=== PATIENT | female | born 1985 | race Caucasian/White ===

== ENCOUNTER 2020-02-05 08:16 | Outpatient (CLI) | payer MEDICAID, SELFPAY ==
--- NOTE | 2020-02-05 08:28 | US_ITS ---
WS: [id number] Pelvic ultrasound, 02/05/2020 Clinical Data: LOWER ABDOMINAL PAIN/NAUSEA/HX OF HYSTERECTOMY Comparison: Pelvic ultrasound, 10/08/2010. Findings: The uterus is absent. The left ovary measures 3.7 cm x 2.3 cm x 1.8 cm with small follicular cysts. The right ovary measures 3.1 cm x 1.8 cm x 1.3 cm with small follicular cysts. There is normal blood flow to both ovaries. There is no fluid in the cul-de-sac. US/US pelvic with transvaginal Impression: 1. Hysterectomy. 2. Bilateral follicular cysts.
== END 2020-02-05 08:17 | disposition home or self-care (01) ==
LOC: RAD 08:21
PROVIDERS: PCP Registered Nurse; Visit Provider Registered Nurse
DX: R10.30 Lower abdominal pain, unspecified (principal); R11.0 Nausea; Z90.710 Acquired absence of both cervix and uterus; N83.02 Follicular cyst of left ovary; N83.01 Follicular cyst of right ovary
CPT/HCPCS: 76830; 76856

== ENCOUNTER 2020-03-30 09:29 | Outpatient (CLI) | payer MEDICAID, SELFPAY ==
--- NOTE | 2020-03-30 09:30 | CT_ITS ---
WS: [id number] Exam: CT abdomen pelvis w con* [id number] Date/Time of Exam: 03/30/2020 9:39 AM Reason For Exam: ABDOMINAL PAIN UNSPECIFIED DLP: 836.[address] scans at [facility] use at least one of these dose optimization techniques: automat ed exposure control; mA and/or kV adjustment per patient size (includes targeted exams where dose is matched to clinical indication); or iterative reconstruction. Comparison 03/30/2010. Lower lung zones are clear. A 2.6 cm cyst is seen in the left lobe of the liver. The liver is otherwi se unremarkable. The stomach, spleen and pancreas appear normal. No calcified stones in the gallbladd er. The abdominal aorta is normal in caliber. The portal vein and IVC are patent. Unremarkable adrena l glands and kidneys. Small bowel loops are not dilated. No significant large bowel abnormality seen. The appendix is normal as visualized. No free air. No lymphadenopathy. No mass in the pelvis. Subcen timeter involuting right adnexal cyst probably an ovarian cyst. Small follicle cysts in the left ovar y. The urinary bladder is smooth in contour. No destructive bone lesions. Abdominal wall is intact. CT/CT abdomen pelvis w con* [id number] IMPRESSION: 1. No mass, lymphadenopathy or acute finding in the abdomen or pelvis. 2. Additional minor nonacute findings as indicated above.
[2020-03-30] MEDS: iohexol 300 mg/mL 50 mL Btl PO (10:36)
[2020-03-30] MEDS: iohexol 300 mg/mL 100 mL Btl IV (11:02)
== END 2020-03-30 09:30 | disposition home or self-care (01) ==
LOC: RADWPI 09:32
PROVIDERS: PCP Registered Nurse; Visit Provider Registered Nurse
DX: R10.9 Unspecified abdominal pain (principal)
CPT/HCPCS: 74177; Q9967

== ENCOUNTER → 2020-09-21 08:43 | Outpatient (BNVA) | payer BC, MEDICAID, SELFPAY | PROVIDERS: PCP Registered Nurse; Visit Provider Obstetrics & Gynecology | DX: R23.2 Flushing (principal); R10.2 Pelvic and perineal pain; N94.10 Unspecified dyspareunia | CPT/HCPCS: 83001 ==

== ENCOUNTER 2020-09-23 10:58 | Emergency (ER) | payer BC, MEDICAID, SELFPAY ==
[2020-09-23 11:08] VITALS: BP 105/82; PULSE 74; RESP 16; TEMP 36.5; O2SAT 98; BMI 19.2
--- NOTE | 2020-09-23 11:15 | CT_ITS ---
WS: [id number] CT HEAD NONCONTRAST HISTORY: visual changes, headache TECHNIQUE: Contiguous axial imaging performed through the brain in 2.5 mm imaging. Bone and soft tiss ue windows. Sagittal and coronal reformats reviewed. All CT scans at [facility] use at ast one of these dose optimization techniques: automated exposure control; mA and/or kV adjustment pe r patient size (includes targeted exams where dose is matched to clinical indication); or iterative r econstruction. DLP: 778.81 mGy.cm COMPARISON: 06/14/2014 No acute intracranial hemorrhage, midline shift or mass effect. No atrophy or prior infarcts or herniation. Ventricles: Normal size with no hydrocephalus. Paranasal sinuses: As visualized are clear. Mastoid air cells: Well pneumatized. Calvarium and scalp: Skull is intact with no soft tissue edema or swelling. CT/CT head wo con* [id number] IMPRESSION: Negative head CT.
--- NOTE | 2020-09-23 11:19 | ED_ITS ---
HPI - General Adult General: Chief complaint: General Medical Stated complaint: GENERAL UNWELLNESS Time Seen by Provider: 09/23/20 11:06 History of Present Illness: HPI narrative: 34-year-old female presents to the emergency room with several vague complaints of visual difficulties some musculoskeletal complaints pelvic pain. She is seeing gynecology for the pelvic pain she did have CT and ultrasound of the pelvis is very difficult to get her to focus on a specific complaint I was able to get her to focus on the vision she will see a floater on her left temporal field of vision. Bothers her when she drives to get the sensors car or an object coming out of her from that direction but then when she looks will be nothing there she has not seen ophthalmology but did see the rn testing they gave her eyeglasses. For the pelvic pain she seen gynecology they did not have a significant finding she has previously had a hysterectomy. Onset (ago): month(s) Location: back and abdomen Severity: moderate Relieving factors: none Exacerbating factors: none Associated symptoms: Reports decreased appetite, headache(s), malaise and nausea; Deny chest pain, confusion, cough, diaphoresis, dyspnea, fevers/chills, rash, palpitations, seizures, short of breath, syncope, vomiting or weakness Treatments prior to arrival: none Review of Systems Const: Reports: malaise; Denies: diaphoresis ENMT: Denies: throat pain, ear or mastoid pain, nasal discharge or nasal congestion Card: Denies: chest pain, palpitations or syncope Resp: Denies: dyspnea GI: Reports: nausea; Denies: vomiting : Denies: flank pain, difficulty voiding, dysuria, urinary frequency or urinary urgency Skin/Breast: Denies: rash Neuro: Reports: headache(s); Denies: confusion PFSH ED PFSH: Surgical History H/O laparoscopy H/O: hysterectomy also states that she had a surgery on a fallopian tube Family History Mother Hypertension Thyroid condition Denies family history of Colon cancer Ovarian cancer Diabetes Clotting disorder Heart disease Hyperlipidemia Breast cancer Anesthesia complication Bleeding disorder Uterine cancer Stroke Social History Smoking and tobacco status: current every day smoker cigarettes Packs smoked per day: 1 Years cigarettes smoked: 20 Alcohol intake: current Alcohol intake frequency: holidays/special occasions only Alcohol type: beer Other details last substance use: history of marijuana and methamphetamine use years ago Physical Exam Const: COMMON NORMALS: no acute distress GENERAL APPEARANCE: cooperative an d comfortable ORIENTATION/CONSCIOUSNESS: Yes awake, Yes oriented to person, Yes oriented to place and Yes oriented to time HENMT: COMMON NORMALS: normocephalic, atraumatic and hearing grossly normal bilaterally HEAD & SCALP: normocephalic and atraumatic Neck/C-Spine: COMMON NORMALS: no JVD Resp: COMMON NORMALS: normal respiratory effort, No retractions, No use of accessory muscles and clear to auscultation bilaterally AUSCULTATION: clear to auscultation bilaterally Cardio: COMMON NORMALS: no JVD, regular rate, regular rhythm and No murmurs present (Cardio) RATE: regular rate RHYTHM: regular rhythm GI: COMMON NORMALS: Soft to palpation and No hepatosplenomegaly present AUSCULTATION: Yes normoactive bowel sounds PALPATION: Yes Soft to palpation, No Tenderness to palpation present (GI), No Guarding due to palpation present (GI) and Yes No hepatosplenomegaly present Extremity: COMMON NORMALS: normal to inspection, capillary refill normal, no clubbing, cyanosis or edema, no calf tenderness and no pedal edema Neuro: SENSORIUM/ORIENTATION: Yes oriented to person, Yes oriented to place and Yes oriented to time Skin: COMMON NORMALS: no rashes or lesions noted GENERAL SKIN EXAM: no rashes or lesions noted Course Vital Signs: Vital signs: Vital Signs Temperature 97.7 F 09/23/20 11:08 Pulse Rate 75 09/23/20 13:38 Respiratory Rate 16 09/23/20 13:38 Blood Pressure 110/67 09/23/20 13:38 Pulse Oximetry 97 09/23/20 13:38 MDM - General Adult MDM Narrative: Medical decision making narrative: Reviewed the lab findings and imaging. At this point I will is much more we can do in the emergency room. Organ to try to get her referred to internal medicine ophthalmology and neurology to see if she can get further evaluation for the complaints. Lab Data: Labs: Lab Results 09/23/20 09/23/20 Range/Units 11:25 11:25 WBC 6.0 (4.0-10.0) 10^3/ uL RBC 4.49 (4.1-5.3) 10^6/u L Hgb 13.5 (11.5-15.3) g/dL Hct 40.1 (37.0-47.0) % MCV 89.3 (81-99) fL MCH 30.1 (28.0-34.0) pg MCHC 33.7 (30.0-36.0) g/dL RDW 12.5 (12.1-15.1) % Plt Count 189 (130-400) 10^3/c mm MPV 10.2 (7.4-10.4) fL Neut % (Auto) 51.1 % Lymph % (Auto) 36.5 % [place] % (Auto) 9.2 % Eos % (Auto) 2.2 % Baso % (Auto) 0.8 % Neut # (Auto) 3.04 (1.8-7.7) 10^3/u L Lymph # (Auto) 2.2 (0.8-4.8) 10^3/u L [place] # (Auto) 0.6 (0.2-0.9) 10^3/u L Eos # (Auto) 0.1 (0.0-0.8) 10^3/u L Baso # (Auto) 0.1 (0.0-0.1) 10^3/u L Nucleated RBC % (a uto) 0 % Nucleated RBCs # 0.0 /100WBC Sodium 137 (136-145) mmol/L Potassium 4.0 (3.5-5.1) mmol/L Chloride 103 (98-107) mmol/L Carbon Dioxide 28 (22-29) mmol/L Anion Gap 10.0 (5-19) BUN 9 (6-20) mg/dL Creatinine 0.6 (0.5-0.9) mg/dL GFR Calculation 113.8 (90-130) mL/min Glucose 95 (65-115) mg/dL Calculated Osmolal ity 282 L (285-295) mOsm/k g Calcium 8.7 (8.5-10.5) mg/dL Total Bilirubin 0.3 (0.15-1.2) mg/dL AST 15 (0-32) U/L ALT 15 (0-33) U/L Alkaline Phosphata se 49 (35-105) IU/L Total Protein 7.2 (6.6-8.7) g/dL Albumin 4.3 (3.5-5.2) g/dL Globulin 2.9 (1.3-4.6) g/dL Discharge Plan Discharge Patient Disposition: Home Clinical Impression: Weakness, Visual disturbance Condition: Stable Prescriptions: No Action No Known Home Medications RF: 0 Discharge Orders: Discharge ED (Routine); Ordered 09/23/20 Ordered By: Mando Murphy Referrals: Flora Murphy [Primary Care Provider] - Discharge Diet: Usual diet Discharge Activity: Increase activity as tolerated Patient Instructions: Opioid Safety Activity Restrictions/Additional Instructions: Case management will call with appointment to Internal Medcine, Opthalmology, and Neurology. Coding Level of Care Code ED Cork Molder for Reymundo Stoner
[2020-09-23 11:30] LABS: Basophils # 0.1 10^3/uL (0.0-0.1); Basophils % 0.8 %; Eosinophils # 0.1 10^3/uL (0.0-0.8); Eosinophils % 2.2 %; Hematocrit 40.1 % (37.0-47.0); Hemoglobin 13.5 g/dL (11.5-15.3); Lymphocytes # 2.2 10^3/uL (0.8-4.8); Lymphocytes % 36.5 %; Mean Corpuscular HGB Conc 33.7 g/dL (30.0-36.0); Mean Corpuscular Hemoglobin 30.1 pg (28.0-34.0); Mean Corpuscular Volume 89.3 fL (81-99); Mean Platelet Volume 10.2 fL (7.4-10.4); Monocytes # 0.6 10^3/uL (0.2-0.9); Monocytes % 9.2 %; Neutrophils # 3.04 10^3/uL (1.8-7.7); Neutrophils % 51.1 %; Nucleated Red Blood Cells % 0 %; Platelet Count 189 10^3/cmm (130-400); Red Blood Count 4.49 10^6/uL (4.1-5.3); Red Cell Distribution Width 12.5 % (12.1-15.1)
[2020-09-23 11:58] LABS: Alanine Aminotransferase 15 U/L (0-33); Albumin Level 4.3 g/dL (3.5-5.2); Alkaline Phosphatase 49 IU/L (35-105); Aspartate Amino Transferase 15 U/L (0-32); Blood Urea Nitrogen 9 mg/dL (6-20); Calcium 8.7 mg/dL (8.5-10.5); Carbon Dioxide 28 mmol/L (22-29); Chloride 103 mmol/L (98-107); Globulin 2.9 g/dL (1.3-4.6); Glomerular Filtration Rate 113.8 mL/min (90-130); Glucose 95 mg/dL (65-115); Osmolality Calculated 282 mOsm/kg (285-295); Sodium 137 mmol/L (136-145); Total Bilirubin 0.3 mg/dL (0.15-1.2); Total Protein 7.2 g/dL (6.6-8.7)
[2020-09-23 13:38] VITALS: BP 110/67; PULSE 75; RESP 16; O2SAT 97
--- NOTE | 2020-09-24 11:42 | DCPLANNER ---
manager reliability had message to schedule a follow up appointment for patient with internal medicine. manager reliability called the office of Dr. Martínez, spoke with Ignacia, gave clinic patients information. A follow up appointment was scheduled for Wednesday, September 27 at 10:00 with C D STRIPPER, Megan Cantu. Clinic will call patient with appointment information. manager reliability also had message to schedule a follow up appointment for patient with neurology. manager reliability emailed patients information to Georgette at Dr. Keane office. Patients information will be printed and reviewed. Clinic will call patient with appointment information. manager reliability also had message to schedule a follow up appointment for patient with opthalmology. manager reliability faxed patients information to the office of Dr. Ayala. manager reliability will call for appointment information.
--- NOTE | 2020-09-28 14:13 | DCPLANNER ---
Patient had a follow up appointment scheduled for 09.27.20 with Rubi Cantu at Internal Medicine - patient did attend appointment.
--- NOTE | 2020-09-28 14:17 | DCPLANNER ---
Dr. Ayala office called pillowcase sewer stating that the clinic no longer accepts health blue insurance, which is what patient has at this time. performing arts road manager called patient to explain this to patient, unable to speak with patient at this time. performing arts road manager left a voicemail for patient to return pillowcase sewer phone call.
--- NOTE | 2020-10-06 15:18 | DCPLANNER ---
Patient has a follow up appointment scheduled for Tuesday, October 13, 2020 at 2:[address] Condon. Clinic will call patient with appointment information.
--- NOTE | 2020-12-07 07:27 | DCPLANNER ---
Patient had a follow up appointment scheduled for 10.13.[address] Condon - patient did attend appointment.
== END 2020-09-23 13:39 | disposition home or self-care (01) ==
PROVIDERS: Emergency Provider Family Medicine; PCP Registered Nurse
DX: R53.1 Weakness (principal); H53.9 Unspecified visual disturbance; F17.210 Nicotine dependence, cigarettes, uncomplicated
CPT/HCPCS: 70450; 80053; 85025; 99283

== ENCOUNTER → 2020-09-27 11:00 | Outpatient (BNVA) | payer BC, MEDICAID, SELFPAY | PROVIDERS: PCP Registered Nurse; Visit Provider Nurse Practitioner Family | DX: F41.1 Generalized anxiety disorder (principal); R53.83 Other fatigue; E11.9 Type 2 diabetes mellitus without complications; R53.1 Weakness; H61.20 Impacted cerumen, unspecified ear; R42 Dizziness and giddiness | CPT/HCPCS: 82306; 82607; 83036; 83550; 84439; 84443; 84481 ==

== ENCOUNTER → 2020-10-13 13:46 | Outpatient (BNVA) | payer BC, MEDICAID, SELFPAY | PROVIDERS: PCP Registered Nurse; Referring Provider Family Medicine; Visit Provider Nurse Practitioner | DX: R53.1 Weakness (principal); R42 Dizziness and giddiness; F17.210 Nicotine dependence, cigarettes, uncomplicated | CPT/HCPCS: 99204 ==

== ENCOUNTER → 2020-10-18 10:48 | Outpatient (BNVA) | payer BC, MEDICAID, SELFPAY | PROVIDERS: PCP Registered Nurse; Visit Provider Obstetrics & Gynecology | DX: R10.2 Pelvic and perineal pain (principal); N83.202 Unspecified ovarian cyst, left side | CPT/HCPCS: 76830 ==

== ENCOUNTER → 2020-11-01 08:14 | Outpatient (BNVA) | payer BC, MEDICAID, SELFPAY | PROVIDERS: PCP Registered Nurse; Visit Provider Obstetrics & Gynecology | DX: R10.2 Pelvic and perineal pain (principal); G89.29 Other chronic pain; R23.2 Flushing; N94.10 Unspecified dyspareunia | CPT/HCPCS: 87635 ==

== ENCOUNTER 2020-11-03 07:20 | Day surgery (SDC) | payer BC, MEDICAID, SELFPAY ==
[2020-11-01 12:02] VITALS: BMI 19.9
[2020-11-01 12:25] LABS: Add Urine Microscopic? NO; Charge for UA Resulting for Rev
[2020-11-01 12:28] LABS: Basophils # 0.1 10^3/uL (0.0-0.1); Basophils % 0.9 %; Eosinophils # 0.1 10^3/uL (0.0-0.8); Eosinophils % 1.9 %; Hematocrit 42.4 % (37.0-47.0); Hemoglobin 13.9 g/dL (11.5-15.3); Lymphocytes # 2.3 10^3/uL (0.8-4.8); Lymphocytes % 41.3 %; Mean Corpuscular HGB Conc 32.8 g/dL (30.0-36.0); Mean Corpuscular Hemoglobin 29.8 pg (28.0-34.0); Mean Platelet Volume 10.6 fL (7.4-10.4); Monocytes # 0.4 10^3/uL (0.2-0.9); Monocytes % 6.4 %; Neutrophils # 2.79 10^3/uL (1.8-7.7); Neutrophils % 49.3 %; Nucleated Red Blood Cells % 0 %; Platelet Count 218 10^3/cmm (130-400); Red Blood Count 4.66 10^6/uL (4.1-5.3); White Blood Count 5.7 10^3/uL (4.0-10.0)
--- NOTE | 2020-11-01 12:33 | ANES.PREANE2 ---
Pre-Anesthetic Assessment Pre-Anesthetic Assessment: Height/Weight: Height 1.63 m Weight 52.617 kg Preop Diagnosis: Chronic pelvic pain Proposed Procedure: Operation Date: 11/03/20 13:10 Proposed Procedures p Laparoscopy diagnostic 44621 R10.2(Not Applicable) - Reno Santos MD Familial anesthetic complications: None Social: Social History: Tobacco and No alcohol Exam: Pre-Anes Outpt Exam: alert, oriented x 3, clear to auscultation bilaterally and regular rate & rhythm Airway: MP: 2 Dentition: False Anesthetic Plan: ASA status: 1 Anesthesia: MAC Risk of > 500 ml blood loss (7ml/kg in children): No PFSH Anesthesia PFSH: Medical History Globus pharyngeus Vertigo Weakness Surgical History H/O laparoscopy H/O: hysterectomy also states that she had a surgery on a fallopian tube Family History Mother Hypertension Thyroid condition Denies family history of Colon cancer Ovarian cancer Diabetes Clotting disorder Heart disease Hyperlipidemia Breast cancer Anesthesia complication Bleeding disorder Uterine cancer Stroke Social History (Updated 11/01/20 @ 08:22 by Erna Auguste RN) Smoking and tobacco status: current every day smoker cigarettes Packs smoked per day: 1 Years cigarettes smoked: 20 Alcohol intake: current Alcohol intake frequency: holidays/special occasions only Alcohol type: beer Other details last substance use: history of marijuana and methamphetamine use years ago Data Anesthesia CBC & Chem 7: 11/01/20 12:15 11/01/20 12:15 Other Labs: Laboratory Results - last 48 hr 11/01/20 12:15 WBC 5.7 RBC 4.66 Hgb 13.9 Hct 42.4 MCV 91.0 MCH 29.8 MCHC 32.8 RDW 13.0 Plt Count 218 MPV 10.6 H Neut % (Auto) 49.3 Lymph % (Auto) 41.3 [place] % (Auto) 6.4 Eos % (Auto) 1.9 Baso % (Auto) 0.9 Neut # (Auto) 2.79 Lymph # (Auto) 2.3 [place] # (Auto) 0.4 Eos # (Auto) 0.1 Baso # (Auto) 0.1 Nucleated RBC % (auto) 0 Nucleated RBCs # 0.0 Cardiac Studies: No Data to Display
[2020-11-01 12:42] LABS: Bilirubin Urine Neg (Negative); Blood Urine Neg (Negative); Glucose Urine UA Norm (Normal); Ketones Urine 1+ (Negative); Leukocyte Esterase Urine Negative (Negative); Nitrate Urine Negative (Negative); Protein Urine Neg (Negative); Specific Gravity, Urine 1.015 (1.005-1.030); Urine Appearance Clear (CLEAR); Urine Color Straw (Yellow); Urobilinogen Urine Norm (Negative); pH Urine 6 (5-7)
[2020-11-01 13:03] LABS: Blood Urea Nitrogen 8 mg/dL (6-20); Calcium 8.7 mg/dL (8.5-10.5); Carbon Dioxide 27 mmol/L (22-29); Chloride 101 mmol/L (98-107); Glomerular Filtration Rate 113.8 mL/min (90-130); Glucose 112 mg/dL (65-115); Osmolality Calculated 287 mOsm/kg (285-295); Sodium 139 mmol/L (136-145)
[2020-11-03] VITALS (7 sets, daily range): BP systolic 95–105; BP diastolic 54–64; PULSE 68–78; RESP 18–21; TEMP 36.3–36.6; O2SAT 99–100
--- NOTE | 2020-11-03 07:46 | ANES.PAUD2 ---
Pre-Anesthetic Update Pre-Anesthetic Assessment: Date of Surgery/Procedure: 11/03/20 Preop Diagnosis: Chronic pelvic pain Proposed Procedure: Operation Date: 11/03/20 09:00 Proposed Procedures p Laparoscopy diagnostic 70510 R10.2(Not Applicable) - Reno Santos MD Any changes to Pre-Anesthetic Assessment?: No Labs Last 48hrs: Laboratory Results - last 48 hr 11/01/20 11/01/20 11/01/20 12:08 12:15 12:15 WBC 5.7 RBC 4.66 Hgb 13.9 Hct 42.4 MCV 91.0 MCH 29.8 MCHC 32.8 RDW 13.0 Plt Count 218 MPV 10.6 H Neut % (Auto) 49.3 Lymph % (Auto) 41.3 [place] % (Auto) 6.4 Eos % (Auto) 1.9 Baso % (Auto) 0.9 Neut # (Auto) 2.79 Lymph # (Auto) 2.3 [place] # (Auto) 0.4 Eos # (Auto) 0.1 Baso # (Auto) 0.1 Nucleated RBC % (a uto) 0 Nucleated RBCs # 0.0 Sodium 139 Potassium 4.0 Chloride 101 Carbon Dioxide 27 Anion Gap 15.0 BUN 8 Creatinine 0.6 GFR Calculation 113.8 Glucose 112 Calculated Osmolal ity 287 Calcium 8.7 Urine Color Straw Urine Appearance Clear Urine pH 6 Ur Specific Gravit y 1.015 Urine Protein Neg Urine Glucose (UA) Norm Urine Ketones 1+ H Urine Blood Neg Urine Nitrate Negative Urine Bilirubin Neg Urine Urobilinogen Norm Ur Leukocyte Isabelle ase Negative Blood Type Rho(D) Type Antibody Screen 11/01/20 12:15 WBC RBC Hgb Hct MCV MCH MCHC RDW Plt Count MPV Neut % (Auto) Lymph % (Auto) [place] % (Auto) Eos % (Auto) Baso % (Auto) Neut # (Auto) Lymph # (Auto) [place] # (Auto) Eos # (Auto) Baso # (Auto) Nucleated RBC % (a uto) Nucleated RBCs # Sodium Potassium Chloride Carbon Dioxide Anion Gap BUN Creatinine GFR Calculation Glucose Calculated Osmolal ity Calcium Urine Color Urine Appearance Urine pH Ur Specific Gravit y Urine Protein Urine Glucose (UA) Urine Ketones Urine Blood Urine Nitrate Urine Bilirubin Urine Urobilinogen Ur Leukocyte Isabelle ase Blood Type A Positive Rho(D) Type Positive / 4+ Antibody Screen Negative Vitals: Temperature 97.5 F L 11/03/20 07:34 Temperature Source Temporal Artery S can 11/03/20 07:34 Pulse Rate 69 11/03/20 07:34 Respiratory Rate 18 11/03/20 07:34 Blood Pressure 103/62 11/03/20 07:34 Blood Pressure Maci n 75 11/03/20 07:34 Pulse Oximetry 100 11/03/20 07:34 Oxygen Delivery Me thod 11/03/20 07:34 Exam: Pre-Anes Outpt Exam: alert, oriented x 3, clear to auscultation bilaterally and regular rate & rhythm Cardiac Studies: No Data to Display
--- NOTE | 2020-11-03 07:57 | W.PM.OPSUD ---
Surgery/Procedure H&P Update DATE OF PROCEDURE: November 03, 2020 DATE H&P PERFORMED: 11/01/20 H&P UPDATE INFORMATION: I have reviewed H&P completed within last 30 days, I have examined patient prior to procedure and No changes to prior documentation PREOP DIAGNOSIS: Chronic pelvic pain PLANNED PROCEDURE: Operation Date: 11/03/20 09:00 Proposed Procedures p Laparoscopy diagnostic 21976 R10.2(Not Applicable) - Reno Santos MD
[2020-11-03] MEDS: scopolamine 1.5 Patch 1 PATCH TRANSDERMA (08:03)
[2020-11-03] MEDS: sodium chloride 0.9% 500 ML IV (08:04)
[2020-11-03] MEDS: acetaminophen 1,000 MG/100 ML PIGGYBACK 400 MG IV (08:04)
[2020-11-03] MEDS: sodium chloride 0.9% 1,000 ML 30 ML IV (08:06)
[2020-11-03] MEDS: vancomycin 1,000 MG in sodium chloride 0.9% 250 ML 250 MG IV (09:30)
--- NOTE | 2020-11-03 10:30 | P.OP_ITS ---
Operative Report Date of procedure: November 03, 2020 Pre-op Diagnosis: Chronic pelvic pain Post-op diagnosis: same Post-op Diagnosis: Adhesions Procedure Done: Diagnostic laparoscopy. Lysis of adhesions Specimens removed/disposition: None Pathology: none sent Surgeon: Reno Santos MD Anesthesia: General Estimated blood loss (mL): 1 IV fluids (mL): 500 Urine output (mL): 100 Complications: none Condition: stable Disposition: PACU Brief History: 34 y/o femal post LAVH with chronic pelvic pain. Procedure: DESCRIPTION OF PROCEDURE: After informed consent, the patient was taken to the operating room where general anesthesia was administered. The patient was examined under anesthesia and found to have a normal uterus with normal adnexa. She was placed in the dorsal lithotomy position and prepped and draped in sterile fashion. Pre- Procedure Time-Out verifying the correct patient identity, correct procedure verified with consent, correct site and side, correct patient position, availability of correct implants and any special equipment or requirements was performed and acknowledge by the OR team. A weighted speculum was placed in the vagina, and the anterior lip of cervix was grasped with the single toothed tenaculum. A uterine manipulator was advanced into the endocervical. Tenaculum was removed after uterine manipulator was secured. The speculum was removed from the vagina. An intraumbilical incision was made with a scalpel. While tenting up on the abdomen, a Verres needle with sleeve was admitted into the intra-abdominal cavity. A saline drop test was performed and noted to be within normal limits. Pneumoperitoneum was attained with 4 liters of carbon dioxide. The Verres needle was removed. A 5 mm trocar and sleeve were admitted into the abdomen and laparo scopic confirmation of location was achieved, A second incision was made 3 cm above the symphysis pubis, and a 5 mm trocar and sleeve were admitted into the abdomen under direct, laparoscopic visualization without complication. A survey revealed normal abdominal anatomy but adhesion noted on the right lateral anterior abdominal wall to the ascending large intestine. The pelvic survey shows normal uterus, left and right adnexa. A 5 mm blunt probe was advanced through the second trocar sleeve, and light manipulation of ovaries, no uterus, to assess the posterior aspects was performed. The filmy adhesions were lysed using the laparoscopic Voyant device without complications. The appendix was then assess and it apperared normal. Carbon dioxide was allowed to escape from the abdomen. The instruments were removed, and skin cover with a bandage. The instruments were removed from the vagina, and excellent hemostasis was noted. The patient tolerated the procedure well, and sponge, lap and needle count were correct times two. The patient taken to the recovery room in good condition.
--- NOTE | 2020-11-03 15:44 | ANE.PACU2 ---
Inpatient post-anesthesia follow up: Airway intact: Yes Vital signs: Temperature 97.8 F Pulse Rate 68 Respiratory Rate 18 Blood Pressure 101/60 Pulse Oximetry 99 Oxygen Delivery Me thod Room Air Oxygen Flow Rate 6 Fraction of Inspir ed Oxygen Hydration adequate: Yes Nausea and vomiting: No Pain level: 3 Mental status: Baseline
== END 2020-11-03 11:40 | disposition home or self-care (01) ==
PROVIDERS: PCP Registered Nurse; Visit Provider Obstetrics & Gynecology
PROC: (CPT 49320; principal; 2020-11-03 09:00)
DX: R10.2 Pelvic and perineal pain (principal); G89.29 Other chronic pain; F17.210 Nicotine dependence, cigarettes, uncomplicated
CPT/HCPCS: 49320; 36415; 80048; 81003; 85025; 86850; 86900; 96365; J1100; J2250; J2405; J2704; J2710; J3010; J3370; J3490; J7030; J7040; J7050

== ENCOUNTER 2020-11-04 15:47 | Emergency (ER) | payer BC, MEDICAID, SELFPAY ==
[2020-11-04 15:58] VITALS: BP 107/60; PULSE 68; RESP 14; TEMP 36.9; O2SAT 98; BMI 20.9
[2020-11-04 17:51] VITALS: BP 106/73; PULSE 70; RESP 16; O2SAT 97
--- NOTE | 2020-11-04 18:03 | W.ED.EYEPROB ---
HPI - Eye Problem General: Chief complaint: Eye Problems Stated complaint: blurry vision Time Seen by Provider: 11/04/20 17:44 History of Present Illness: HPI Narrative: Patient is a 34-year-old female comes to the ED with blurred vision and dizziness. Patient says that on Sunday she had a surgery with Dr. Santos and this morning when she got up she was having blurred vision and dizziness. Patient called Dr. Santos today and they instructed her to come to the ED to be evaluated. She denies having really any abdominal pain and laparoscopic surgical incisions are closed and not causing her any problems. She says the blurred vision is in both of her eyes and she woke up with it this morning. She also woke up with the dizziness this morning and says that it gets worse if she turns her head to one side. She states that since procedure yesterday she has not eaten or drank much. Associated symptoms: Denies fever(s), headache(s), nausea, neck pain or vomiting Review of Systems Const: Denies: fever(s), chills or fatigue Eyes: Reports: blurry vision (Bilateral eyes); Denies: change in vision or eye discomfort ENMT: Denies: throat pain, odynophagia, nasal discharge or nasal congestion Card: Denies: chest pain, palpitations, edema, swelling of feet/ankles, dyspnea on exertion or orthopnea Resp: Denies: dyspnea, productive cough or non-productive cough GI: Denies: abdominal pain, nausea, vomiting, diarrhea, constipation or hematochezia : Denies: flank pain, dysuria or hematuria Musc: Denies: neck pain, back pain or extremity swelling Skin/Breast: Denies: rash or new lesions Neuro: Reports: dizziness; Denies: headache(s), numbness in extremities or weakness in extremities PFSH ED PFSH: Medical History Globus pharyngeus Vertigo Weakness Surgical History H/O laparoscopy H/O: hysterectomy also states that she had a surgery on a fallopian tube Family History Mother Hypertension Thyroid condition Denies family history of Colon cancer Ovarian cancer Diabetes Clotting disorder Heart disease Hyperlipidemia Breast cancer Anesthesia complication Bleeding disorder Uterine cancer Stroke Social History Smoking and tobacco status: current every day smoker cigarettes Packs smoked per day: 1 Years cigarettes smoked: 20 Alcohol intake: current Alcohol intake frequency: holidays/special occasions only Alcohol type: beer Other details last substance use: history of marijuana and methamphetamine use years ago Physical Exam Const: COMMON NORMALS: no acute distress, patient oriented x3, healthy appearing and alert GENERAL APPEARANCE: cooperative and comfortable HENMT: COMMON NORMALS: normocephalic HEAD & SCALP: normocephalic MOUTH: Normal oral and palatal mucosa present THROAT: posterior oropharynx normal and uvula midline Eye: COMMON NORMALS: Equal, round and reactive pupils present, EOMs intact bilaterally and conjunctivae normal CONJUNCTIVA: Yes conjunctivae normal PUPIL: Yes Equal, round and reactive pupils present EOM: Yes Nystagmus present Nystagmus Noted: positive horizontal and positive with left lateral gaze Neck/C-Spine: COMMON NORMALS: supple GENERAL: Yes normal visual inspection Resp: COMMON NORMALS: normal respiratory effort, No retractions, No use of accessory muscles and clear to auscultation bilaterally AUSCULTATION: clear to auscultation bilaterally Cardio: COMMON NORMALS: regular rate, regular rhythm, S1 normal heart sound present, S2 normal heart sound present, No gallops present (Cardio), No clicks present (Cardio), No murmurs present (Cardio) and Peripheral pulses 2+ throughout RATE: regular rate RHYTHM: regular rhythm HEART SOUNDS: S1 normal heart sound present and S2 normal heart sound present PERIPHERAL PULSES: Peripheral pulses 2+ throughout GI: COMMON NORMALS: Normal to inspection, nondistended, normoactive bowel sounds present, Soft to palpation, non-tender and no masses INSPECTION: Yes incision (2 small surgical incisions on abd-closed, no drainage, erythema or warmth) Inspection of incision: healing well PALPATION: Yes Soft to palpation : COMMON NORMALS: Yes no CVA tenderness BLADDER/KIDNEY EXAM: Yes no CVA tenderness Back/Pelvis: COMMON NORMALS: no CVA tenderness Extremity: COMMON NORMALS: normal to inspection Neuro: COMMON NORMALS: patient oriented x3 and moves all extremities SENSORIUM/ORIENTATION: Yes alert Skin: GENERAL SKIN EXAM: dry skin Course Vital Signs: Vital signs: Vital Signs Temperature 98.4 F 11/04/20 15:58 Pulse Rate 60 11/04/20 19:59 Respiratory Rate 18 11/04/20 19:59 Blood Pressure 120/68 11/04/20 19:59 Pulse Oximetry 100 11/04/20 19:59 MDM - Eye Problem MDM Narrative: Medical decision making narrative: Patient is a 34-year-old female comes to the ED with dizziness and blurry vision. Patient had a laparoscopic procedure by Dr. Santos yesterday. She contacted Dr. Santos and he told her to come here to the ED to be evaluated. Patient appears nontoxic and in no acute distress or pain. CBC and CMP were unremarkable. CT of head showed no acute findings. EKG showed sinus bradycardia with no ST segment elevation or depression seen. Patient was given IV fluids here in the ED and then discharged home. She was diagnosed with dizziness and blurred vision likely due to postop symptoms. Patient's vitals were stable and she was discharged home. She was told to follow-up with Dr. Santos as directed. Regarding precautions given. Patient stood with plan. Lab Data: Attestation: I reviewed the patient's lab results. Labs: Lab Results 11/04/20 11/04/20 Range/Units 19:35 20:15 WBC 8.2 (4.0-10.0) 10^3/ uL RBC 4.11 (4.1-5.3) 10^6/u L Hgb 12.3 (11.5-15.3) g/dL Hct 37.4 (37.0-47.0) % MCV 91.0 (81-99) fL MCH 29.9 (28.0-34.0) pg MCHC 32.9 (30.0-36.0) g/dL RDW 13.0 (12.1-15.1) % Plt Count 191 (130-400) 10^3/c mm MPV 10.9 H (7.4-10.4) fL Neut % (Auto) 49.9 % Lymph % (Auto) 41.4 % [place] % (Auto) 6.4 % Eos % (Auto) 1.6 % Baso % (Auto) 0.6 % Neut # (Auto) 4.08 (1.8-7.7) 10^3/u L Lymph # (Auto) 3.4 (0.8-4.8) 10^3/u L [place] # (Auto) 0.5 (0.2-0.9) 10^3/u L Eos # (Auto) 0.1 (0.0-0.8) 10^3/u L Baso # (Auto) 0.1 (0.0-0.1) 10^3/u L Nucleated RBC % (a uto) 0 % Nucleated RBCs # 0.0 /100WBC Sodium 142 (136-145) mmol/L Potassium 3.8 (3.5-5.1) mmol/L Chloride 104 (98-107) mmol/L Carbon Dioxide 26 (22-29) mmol/L Anion Gap 15.8 (5-19) BUN 8 (6-20) mg/dL Creatinine 0.7 (0.5-0.9) mg/dL GFR Calculation 95.2 (90-130) mL/min Glucose 70 (65-115) mg/dL Calculated Osmolal ity 291 (285-295) mOsm/k g Calcium 8.7 (8.5-10.5) mg/dL Total Bilirubin 0.3 (0.15-1.2) mg/dL AST 13 (0-32) U/L ALT 9 (0-33) U/L Alkaline Phosphata se 51 (35-105) IU/L Total Protein 6.5 L (6.6-8.7) g/dL Albumin 4.4 (3.5-5.2) g/dL Globulin 2.1 (1.3-4.6) g/dL Imaging Data^: CT Head: Attestation: I personally reviewed and interpreted this imaging study as follows: Radiologist's impression: [address] [address] [address] Scan Report Signed Patient: Maryellen Rivera Unit #: [id number] : 1985 Age/Sex: 34 / F ADM Date: 11/04/20 Loc: ER Room/Bed: Attending Dr: Ordering Provider/Ordering MD: Venkatesh Bowden Date of Service: 11/04/20 Procedure(s): CT head wo con* [id number] Accession Number(s): [id number] Report Number: [id number] PROCEDURE INFORMATION: Exam: CT Head Without Contrast Exam date and time: 11/04/2020 6:04 PM Age: 34 years old Clinical indication: Dizziness; Additional info: Dizziness and blurred vision TECHNIQUE: Imaging protocol: Computed tomography of the head without contrast. Total images: 193 Radiation optimization: All CT scans at this facility use at least one of these dose optimization techniques: automated exposure control; mA and/or kV adjustment per patient size (includes targeted exams where dose is matched to clinical indication); or iterative reconstruction. COMPARISON: CT head wo con* [id number] 09/23/2020 11:43 AM RADIATION DOSE METRICS: Total DLP (mGy-cm): 945.86 FINDINGS: Brain: Normal. No hemorrhage. Unremarkable white matter. No mass effect. Cerebral ventricles: No ventriculomegaly. Paranasal sinuses: Visualized sinuses are unremarkable. No fluid levels. Mastoid air cells: Visualized mastoid air cells are well aerated. Bones/joints: Unremarkable. No acute fracture. Soft tissues: Unremarkable. CT/CT head wo con* [id number] IMPRESSION: No acute intracranial abnormality. Radiation Dose CTDIVOL = (mGy): DLP = 945.86 (mGy-cm) Dictated By: Dusty Best Signed By: Dusty Best Signed Date/Time: 11/04/201856 DD/ 54 EKG Data^: EKG 1: Attestation: I personally reviewed and interpreted this EKG as follows: EKG interpretation date: 11/04/20 Interpretation: Sinus bradycardia, 54 bpm, no ST segment elevation or depression seen. Discharge Plan Discharge Patient Disposition: Home Clinical Impression: Blurred vision, bilateral, Dizziness Condition: Stable Prescriptions: New meclizine 25 mg tablet 25 mg PO DAILY PRN (Reason: dizziness) Qty: 7 RF: 0 No Action hydroxyzine HCl 25 mg Tablet 25 mg PO TID PRN (Reason: Anxiety) RF: 0 ibuprofen 800 mg tablet 800 mg PO TID PRN (Reason: pain) Qty: 60 RF: 0 acetaminophen 325 mg capsule 325 mg PO Q4H PRN (Reason: fever or pain) Qty: 60 RF: 0 ketorolac 10 mg tablet 10 mg PO Q8H PRN (Reason: postoperative pain) 2 Days Qty: 6 RF: 0 Discharge Orders: Discharge ED (Routine); Ordered 11/04/20 Ordered By: Venkatesh Bowden Referrals: Flora Murphy [Primary Care Provider] - Discharge Diet: Regular Discharge Activity: Increase activity as tolerated Patient Instructions: Blurred Vision (ED), Dizziness (ED) Coding Level of Care Code ED Foreign Language Professor for Chg Fwd Exam Comprehensive
--- NOTE | 2020-11-04 18:24 | ECG_ITS ---
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 Measurements Intervals [place] Rate: 54 P: -62 CA: 175 QRS: 89 QRSD: 101 T: 69 QT: 420 QTc: 399 Interpretive Statements ECTOPIC ATRIAL BRADYCARDIA INCOMPLETE RIGHT BUNDLE BRANCH BLOCK [90+ ms QRS DURATION, TERMINAL R IN V1/V2, 40+ ms S IN I/aVL/V4/V5/V6] ABNORMAL RHYTHM ECG No previous ECG available for comparison Electronically Signed On 11-05-2020 14:15:18 CDT by Jessica Sanders M.D. [id number]
[2020-11-04 19:59] VITALS: BP 120/68; PULSE 60; RESP 18; O2SAT 100
[2020-11-04] MEDS: sodium chloride 0.9% 1,000 ML 999 ML IV (20:12)
[2020-11-04 20:26] LABS: Basophils # 0.1 10^3/uL (0.0-0.1); Basophils % 0.6 %; Eosinophils # 0.1 10^3/uL (0.0-0.8); Eosinophils % 1.6 %; Hematocrit 37.4 % (37.0-47.0); Hemoglobin 12.3 g/dL (11.5-15.3); Lymphocytes # 3.4 10^3/uL (0.8-4.8); Lymphocytes % 41.4 %; Mean Corpuscular HGB Conc 32.9 g/dL (30.0-36.0); Mean Corpuscular Hemoglobin 29.9 pg (28.0-34.0); Mean Platelet Volume 10.9 fL (7.4-10.4); Monocytes # 0.5 10^3/uL (0.2-0.9); Monocytes % 6.4 %; Neutrophils # 4.08 10^3/uL (1.8-7.7); Neutrophils % 49.9 %; Nucleated Red Blood Cells % 0 %; Platelet Count 191 10^3/cmm (130-400); Red Blood Count 4.11 10^6/uL (4.1-5.3); White Blood Count 8.2 10^3/uL (4.0-10.0)
[2020-11-04 21:00] LABS: Alanine Aminotransferase 9 U/L (0-33); Albumin Level 4.4 g/dL (3.5-5.2); Alkaline Phosphatase 51 IU/L (35-105); Anion Gap 15.8 (5-19); Aspartate Amino Transferase 13 U/L (0-32); Blood Urea Nitrogen 8 mg/dL (6-20); Calcium 8.7 mg/dL (8.5-10.5); Carbon Dioxide 26 mmol/L (22-29); Chloride 104 mmol/L (98-107); Globulin 2.1 g/dL (1.3-4.6); Glomerular Filtration Rate 95.2 mL/min (90-130); Glucose 70 mg/dL (65-115); Osmolality Calculated 291 mOsm/kg (285-295); Potassium 3.8 mmol/L (3.5-5.1); Sodium 142 mmol/L (136-145); Total Bilirubin 0.3 mg/dL (0.15-1.2); Total Protein 6.5 g/dL (6.6-8.7)
== END 2020-11-04 20:48 | disposition home or self-care (01) ==
PROVIDERS: Emergency Provider Physician Assistant; PCP Registered Nurse
DX: H53.8 Other visual disturbances (principal); R42 Dizziness and giddiness; F17.210 Nicotine dependence, cigarettes, uncomplicated
CPT/HCPCS: 70450; 80053; 85025; 93005; 96360; 99283; J7030

== ENCOUNTER 2020-11-05 10:48 | Emergency (ER) | payer BC, MEDICAID, SELFPAY ==
[2020-11-05 11:05] VITALS: BP 121/79; PULSE 59; RESP 16; TEMP 36.9; O2SAT 99; BMI 20.9
--- NOTE | 2020-11-05 13:07 | ED_ITS ---
HPI - Chest Pain General: Chief Complaint: Chest Pain Stated Complaint: cp Time Seen by Provider: 11/05/20 13:00 History of Present Illness: HPI narrative: Patient states that she has anxiety and she feels her anxiety is given the best of her right now. She knows her tests have been negative she said she just feels bad since she has not had her lorazepam available to her. She said her son-in-law has lorazepam and he is up in [place] right now and she not be able to get her pills until 7 or 8 days MD complaint: other Quality: dull Relieving factors: nothing Exacerbating factors: stress Context: recent illness and recent surgery Associated symptoms: Reports no associated symptoms; Deny abdominal pain, dyspnea, fever(s), nausea or vomiting Review of Systems Const: Denies: fever(s), chills or body aches Eyes: Denies: change in vision or blurry vision ENMT: Denies: throat pain or nasal congestion Card: Denies: chest pain or dyspnea on exertion Resp: Denies: dyspnea, productive cough or non-productive cough GI: Denies: abdominal pain, nausea or vomiting Musc: Denies: extremity pain Skin/Breast: Denies: rash Neuro: Denies: headache(s) Psych: Reports: anxiety; Denies: depression Kunal/Lymph: Denies: easy bruising PFSH ED PFSH: Medical History Globus pharyngeus Vertigo Weakness Surgical History H/O laparoscopy H/O: hysterectomy also states that she had a surgery on a fallopian tube Family History Mother Hypertension Thyroid condition Denies family history of Colon cancer Ovarian cancer Diabetes Clotting disorder Heart disease Hyperlipidemia Breast cancer Anesthesia complication Bleeding disorder Uterine cancer Stroke Social History Smoking and tobacco status: current every day smoker cigarettes Packs smoked per day: 1 Years cigarettes smoked: 20 Alcohol intake: current Alcohol intake frequency: holidays/special occasions only Alcohol type: beer Other details last substance use: history of marijuana and methamphetamine use years ago Physical Exam Const: COMMON NORMALS: no acute distress, average body habitus and patient oriented x3 HENMT: COMMON NORMALS: normocephalic HEAD & SCALP: normal to inspection and normocephalic FACE & SINUS: normal facial exam Eye: COMMON NORMALS: conjunctivae normal GENERAL EYE: appearance normal, both eyes and all related structures CONJUNCTIVA: Yes conjunctivae normal Neck/C-Spine: COMMON NORMALS: no JVD Chest: COMMONS NORMALS: normal inspection of the chest Resp: COMMON NORMALS: normal respiratory effort and clear to auscultation bilaterally AUSCULTATION: clear to auscultation bilaterally Cardio: COMMON NORMALS: no JVD, regular rate and regular rhythm RATE: regular rate RHYTHM: regular rhythm GI: COMMON NORMALS: Normal to inspection, nondistended, normoactive bowel sounds present Extremity: COMMON NORMALS: normal to inspection and full ROM Neuro: COMMON NORMALS: patient oriented x3 Course Vital Signs: Vital signs: Vital Signs Temperature 98.4 F 11/05/20 11:05 Pulse Rate 59 L 11/05/20 11:05 Respiratory Rate 16 11/05/20 11:05 Blood Pressure 121/79 11/05/20 11:05 Pulse Oximetry 99 11/05/20 11:05 Discharge Plan Discharge Patient Disposition: Home Clinical Impression: Anxiety about health Condition: Stable Prescriptions: New Ativan 0.5 mg tablet 0.25 mg PO DAILY PRN (Reason: anxiety) Qty: 7 RF: 0 No Action hydroxyzine HCl 25 mg Tablet 25 mg PO TID PRN (Reason: Anxiety) RF: 0 ibuprofen 800 mg tablet 800 mg PO TID PRN (Reason: pain) Qty: 60 RF: 0 acetaminophen 325 mg capsule 325 mg PO Q4H PRN (Reason: fever or pain) Qty: 60 RF: 0 meclizine 25 mg tablet 25 mg PO DAILY PRN (Reason: dizziness) Qty: 7 RF: 0 Discharge Orders: Discharge ED (Routine); Ordered 11/05/20 Ordered By: Thor Landaverde Referrals: Flora Murphy [Primary Care Provider] - Discharge Diet: Usual diet Discharge Activity: Resume usual activity Patient Instructions: Anxiety (ED) Activity Restrictions/Additional Instructions: Follow-up with medical provider as directed. Take medications as prescribed. Return to the ER or your medical provider if condition worsens. Please read and understand discharge instructions. If any questions ask please. Coding Level of Care Code ED Tube Cutter Operator for Reymundo Stoner
[2020-11-05 13:09] VITALS: BP 117/63; PULSE 71; RESP 16; O2SAT 98
== END 2020-11-05 13:10 | disposition home or self-care (01) ==
PROVIDERS: Emergency Provider Nurse Practitioner Family; PCP Registered Nurse
DX: F41.9 Anxiety disorder, unspecified (principal); F17.210 Nicotine dependence, cigarettes, uncomplicated
CPT/HCPCS: 99281

== ENCOUNTER 2020-11-23 14:56 | Outpatient (CLI) | payer BC, MEDICAID, SELFPAY ==
--- NOTE | 2020-11-23 15:15 | MR_ITS ---
WS: [id number] MRI BRAIN WITH AND WITHOUT CONTRAST HISTORY: R42 - Dizziness and giddiness COMPARISON: 06/12/2011 TECHNIQUE: Multiplanar imaging performed through the brain with MultiHance 11 ml's IV. No acute infarcts are seen. Keys-white matter differentiation is well preserved. Numerous subcortical T2 and FLAIR signal hyperintensities have increased in size and number since 06/12/2011. Majority of these are in the frontal lobe distribution. No prior infarct or hemorrhage. No susceptibility artifacts or prior lacunar infarcts. Ventricles and extra-axial spaces are normal. Clivus and pituitary gland are normal. Visualized posterior fossa and brainstem are also normal. Postcontrast images are negative for masses or vascular malformations. Dural venous sinuses are normal. Paranasal sinuses: Well aerated with no significant disease. Mastoid air cells: Normal. Calvarium and scalp: Normal. MR/MR head wo/w con [id number] IMPRESSION: 1. Mild progression of the subcortical signal abnormalities noted bilaterally but greatest distribution in the frontal lobes. Differential includes migraines , hypertension, diabetes and smoking and less likely demyelination. 2. No acute infarct. No significant volume loss or atrophy. 3. No mass.
[2020-11-23] MEDS: gadobenate dimeglumine 20 mL vial IV (15:57)
== END 2020-11-23 14:57 | disposition home or self-care (01) ==
PROVIDERS: PCP Registered Nurse; Visit Provider Nurse Practitioner
DX: R42 Dizziness and giddiness (principal); R53.1 Weakness
CPT/HCPCS: 70553; A9577

== ENCOUNTER → 2020-11-26 13:12 | Outpatient (BNVA) | payer BC, MEDICAID, SELFPAY | PROVIDERS: PCP Registered Nurse; Visit Provider Nurse Practitioner | DX: R53.1 Weakness (principal); F17.210 Nicotine dependence, cigarettes, uncomplicated | CPT/HCPCS: 99213; 99214 ==

== ENCOUNTER → 2021-01-05 09:57 | Outpatient (BNVA) | payer BC, MEDICAID, SELFPAY | PROVIDERS: PCP Registered Nurse; Visit Provider Specialist | DX: G37.9 Demyelinating disease of central nervous system, unspecified (principal); F17.210 Nicotine dependence, cigarettes, uncomplicated | CPT/HCPCS: 62270; 99214 ==

== ENCOUNTER → 2021-01-20 13:30 | Outpatient (BNVA) | payer BC, MEDICAID, SELFPAY | PROVIDERS: PCP Registered Nurse; Visit Provider Psychiatry & Neurology Psychiatry | DX: F41.1 Generalized anxiety disorder (principal); F41.0 Panic disorder [episodic paroxysmal anxiety] | CPT/HCPCS: 90792 ==

== ENCOUNTER → 2021-02-09 13:43 | Outpatient (BNVA) | payer BC, MEDICAID, SELFPAY | PROVIDERS: PCP Registered Nurse; Visit Provider Counselor Professional | DX: F41.1 Generalized anxiety disorder (principal) | CPT/HCPCS: 90834 ==

== ENCOUNTER → 2021-02-25 07:46 | Outpatient (BNVA) | payer BC, MEDICAID, SELFPAY | PROVIDERS: PCP Registered Nurse; Visit Provider Counselor Professional | DX: F41.1 Generalized anxiety disorder (principal) | CPT/HCPCS: 90834 ==

== ENCOUNTER → 2021-03-04 07:43 | Outpatient (BNVA) | payer BC, MEDICAID, SELFPAY | PROVIDERS: PCP Registered Nurse; Visit Provider Counselor Professional | DX: F41.1 Generalized anxiety disorder (principal) | CPT/HCPCS: 90834 ==

== ENCOUNTER → 2021-03-10 14:45 | Outpatient (BNVA) | payer BC, MEDICAID, SELFPAY | PROVIDERS: PCP Registered Nurse; Visit Provider Psychiatry & Neurology Psychiatry | DX: F41.1 Generalized anxiety disorder (principal); F41.0 Panic disorder [episodic paroxysmal anxiety] | CPT/HCPCS: 99214 ==

== ENCOUNTER 2021-03-21 10:29 | Emergency (ER) | payer BC, MEDICAID, SELFPAY ==
[2021-03-21 10:34] VITALS: BP 111/71; PULSE 74; RESP 18; TEMP 36.6; O2SAT 99; BMI 19.0
--- NOTE | 2021-03-21 10:49 | XR_ITS ---
WS: [id number] PORTABLE CHEST HISTORY: chest pain COMPARISON: 01/20/2015 Lungs are clear and well expanded. No pleural effusion or pneumothorax. Cardiac size: Normal. Mediastinum/Aorta: Normal mediastinum. No osseous abnormality seen. XR/XR chest 1V portable [id number] IMPRESSION: Unremarkable portable chest.
--- NOTE | 2021-03-21 10:49 | ECG_ITS ---
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 Measurements Intervals [place] Rate: 66 P: -62 [place]: 163 QRS: 62 QRSD: 101 T: 45 QT: 395 QTc: 415 Interpretive Statements ECTOPIC ATRIAL RHYTHM POSSIBLE RIGHT VENTRICULAR CONDUCTION DELAY [RSR (QR) IN V1/V2] Compared to ECG 11/04/2020 19:04:07 Ectopic atrial rhythm now present Bradycardia, nonsinus no longer present Incomplete right bundle-branch block no longer present Electronically Signed On 03-21-2021 16:45:08 SALES INCENTIVE ANALYST by Hao Elizondo M.D. [id number]
--- NOTE | 2021-03-21 11:11 | ED_ITS ---
HPI - Chest Pain General: Chief Complaint: Chest Pain Stated Complaint: Chest Pain since Sunday Time Seen by Provider: 03/21/21 10:46 History of Present Illness: HPI narrative: 35-year-old female presents emergency room complaining of chest pressure over the last couple of months been constant for the last 3 days. She has not noticed anything that makes it better or worse. Did not radiate into the neck or the arms. She has noticed slight increase in productive cough. She is a smoker and has a baseline cough that is worsened slightly. She denies any hemoptysis. She did not had any fever sweats or chills or any flulike symptoms no diarrhea she is not previously had Covid nor is she been vaccinated. She also references some pain in the left hip radiating to the buttock into the proximal portion of the thigh. Does not reach down to her toes. No difficulty with bowel or bladder functions. No particular injury that she can recall she has been able to be weightbearing. She reports that she was seen a few days ago little nearby emergency room and chest x-ray and they gave her something for GI symptoms but she did not notice any improvement. MD complaint: chest heaviness and chest discomfort Onset (ago): month(s) Timing of current episode: episodic Prior episodes: Yes Onset: during rest and during exertion Pain location: left chest Pain radiation: none Severity: moderate Quality: heaviness Relieving factors: nothing Exacerbating factors: nothing Associated symptoms: Deny abdominal pain, diaphoresis, dyspnea, fever(s), leg edema, nausea, palpitations, sense of impending doom, syncope or vomiting Treatment prior to arrival: none Review of Systems Const: Denies: fever(s) or diaphoresis ENMT: Denies: throat pain, ear or mastoid pain, nasal discharge or nasal congestion Card: Denies: palpitations or syncope Resp: Denies: dyspnea GI: Denies: abdominal pain, nausea or vomiting : Denies: flank pain, difficulty voiding, dysuria, urinary frequency or urinary urgency Skin/Breast: Denies: rash or pruritus PFS ED PFSH: Medical History (Updated 03/21/21 @ 12:26 by Mando Murphy DO) Aftercare following surgery of the genitourinary system BRANDON (generalized anxiety disorder) Globus pharyngeus Panic Psychiatric care Vertigo Weakness Surgical History H/O laparoscopy H/O: hysterectomy also states that she had a surgery on a fallopian tube Family History Mother Hypertension Thyroid condition Denies family history of Colon cancer Ovarian cancer Diabetes Clotting disorder Heart disease Hyperlipidemia Breast cancer Anesthesia complication Bleeding disorder Uterine cancer Stroke Social History Smoking and tobacco status: current every day smoker cigarettes Packs smoked per day: 1 Years cigarettes smoked: 20 Alcohol intake: current Alcohol intake frequency: holidays/special occasions only Alcohol type: beer Other details last substance use: history of marijuana and methamphetamine use years ago Physical Exam Const: COMMON NORMALS: no acute distress GENERAL APPEARANCE: cooperative and comfortable ORIENTATION/CONSCIOUSNESS: Yes awake, Yes oriented to person, Yes oriented to place and Yes oriented to time HENMT: COMMON NORMALS: normocephalic, atraumatic and hearing grossly normal bilaterally HEAD & SCALP: normocephalic and atraumatic Neck/C-Spine: COMMON NORMALS: no JVD Lymph: LYMPHATIC: no lymphadenopathy noted and no lymphedema noted Resp: COMMON NORMALS: normal respiratory effort, No retractions, No use of accessory muscles and clear to auscultation bilaterally AUSCULTATION: clear to auscultation bilaterally Cardio: COMMON NORMALS: no JVD, regular rate, regular rhythm and No murmurs present (Cardio) RATE: regular rate RHYTHM: regular rhythm GI: COMMON NORMALS: Soft to palpation and No hepatosplenomegaly present AUSCULTATION: Yes normoactive bowel sounds PALPATION: Yes Soft to palpation, No Tenderness to palpation present (GI), No Guarding due to palpation present (GI) and Yes No hepatosplenomegaly present Extremity: COMMON NORMALS: normal to inspection, capillary refill normal, no clubbing, cyanosis or edema, no calf tenderness and no pedal edema Neuro: SENSORIUM/ORIENTATION: Yes oriented to person, Yes oriented to place and Yes oriented to time Skin: COMMON NORMALS: no rashes or lesions noted GENERAL SKIN EXAM: no rashes or lesions noted Course Vital Signs: Vital signs: Vital Signs Temperature 97.9 F 03/21/21 10:34 Pulse Rate 57 L 03/21/21 11:38 Respiratory Rate 18 03/21/21 11:38 Blood Pressure 114/67 03/21/21 11:38 Pulse Oximetry 100 03/21/21 11:38 MDM - Chest Pain MDM Narrative: Medical decision making narrative: Reviewed labs and imaging the patient no significant findings made which in some ways is good discussed with her there is no evidence of any significant pathology. However does not explain her current symptoms she does have an isolated nodule is found on CT we will refer her to pulmonology. Lab Data: Labs: Lab Results 03/21/21 03/21/21 03/21/21 11:24 11:24 11:24 WBC 5.5 10^3/uL 10^3/ uL (4.0-10.0) RBC 4.92 10^6/uL 10^6 /uL (4.1-5.3) Hgb 14.9 g/dL g/dL (11.5-15.3) Hct 43.7 % % (37.0-47.0) MCV 88.8 fl fl (81-99) MCH 30.3 pg pg (28.0-34.0) MCHC 34.1 g/dL g/dL (30.0-36.0) RDW 12.4 % % (12.1-15.1) Plt Count 197 10^3/cmm 10^3 /cmm (130-400) MPV 10.4 fL fL (7.4-10.4) Neut % (Auto) 48.2 % % Lymph % (Auto) 40.0 % % [place] % (Auto) 9.1 % % Eos % (Auto) 1.8 % % Baso % (Auto) 0.7 % % Neut # (Auto) 2.63 10^3/uL 10^3 /uL (1.8-7.7) Lymph # (Auto) 2.2 10^3/uL 10^3/ uL (0.8-4.8) [place] # (Auto) 0.5 10^3/uL 10^3/ uL (0.2-0.9) Eos # (Auto) 0.1 10^3/uL 10^3/ uL (0.0-0.8) Baso # (Auto) 0.0 10^3/uL 10^3/ uL (0.0-0.1) Nucleated RBC % (a uto) 0 % % Nucleated RBCs # 0.0 /100WBC /100W BC D-Dimer <= 0.27 ug/mIFEU ug/mIFEU (0-0.59) Sodium 140 mmol/L mmol/L (136-145) Potassium 4.1 mmol/L mmol/L (3.5-5.1) Chloride 103 mmol/L mmol/L (98-107) Carbon Dioxide 25 mmol/L mmol/L (22-29) Anion Gap 16.1 (5-19) BUN 9 mg/dL mg/dL (6-20) Creatinine 0.6 mg/dL mg/dL (0.5-0.9) GFR Calculation 113.1 mL/min mL/m in (90-130) Glucose 87 mg/dL mg/dL (65-115) Calculated Osmolal ity 288 mOsm/kg mOsm/ kg (285-295) Calcium 8.9 mg/dL mg/dL (8.5-10.5) Total Bilirubin 0.4 mg/dL mg/dL (0.15-1.2) AST 15 U/L U/L (0-32) ALT 14 U/L U/L (0-33) Alkaline Phosphata se 55 IU/L IU/L (35-105) Troponin T Baselin e Total Protein 7.3 g/dL g/dL (6.6-8.7) Albumin 4.4 g/dL g/dL (3.5-5.2) Globulin 2.9 g/dL g/dL (1.3-4.6) 03/21/21 11:24 WBC RBC Hgb Hct MCV MCH MCHC RDW Plt Count MPV Neut % (Auto) Lymph % (Auto) [place] % (Auto) Eos % (Auto) Baso % (Auto) Neut # (Auto) Lymph # (Auto) [place] # (Auto) Eos # (Auto) Baso # (Auto) Nucleated RBC % (a uto) Nucleated RBCs # D-Dimer Sodium Potassium Chloride Carbon Dioxide Anion Gap BUN Creatinine GFR Calculation Glucose Calculated Osmolal ity Calcium Total Bilirubin AST ALT Alkaline Phosphata se Troponin T Baselin e 6 ng/L ng/L (0-10) Total Protein Albumin Globulin Discharge Plan Discharge Patient Disposition: Home Clinical Impression: Atypical chest pain Condition: Stable Prescriptions: No Action famotidine 20 mg tablet 20 mg PO BID RF: 0 ibuprofen 800 mg tablet 800 mg PO TID PRN (Reason: pain) Qty: 60 RF: 3 Ativan 0.5 mg tablet 0.25 mg PO BID PRN (Reason: anxiety) 30 Days Qty: 30 RF: 3 acetaminophen 325 mg capsule 325 mg PO Q4H PRN (Reason: fever or pain) Qty: 60 RF: 0 Discharge Orders: Discharge ED (Routine); Ordered 03/21/21 Ordered By: Mando Murphy Referrals: Flora Murphy [Primary Care Provider] - Discharge Diet: Usual diet Discharge Activity: Increase activity as tolerated Patient Instructions: Opioid Safety Activity Restrictions/Additional Instructions: airport location manager will make arrangements for pulmonology to see you. 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
--- NOTE | 2021-03-21 11:15 | CT_ITS ---
WS: [id number] CT CHEST ANGIOGRAPHY WITH REFORMATS HISTORY: Atypical chest pain TECHNIQUE: Contiguous axial images are obtained through the chest during arterial injection of intrav enous contrast. Images are reconstructed to evaluate the pulmonary arteries. MIP imaging also reviewe d. All CT scans at [facility] use at least one of these dose optimization techniques: automat ed exposure control; mA and/or kV adjustment per patient size (includes targeted exams where dose is matched to clinical indication); or iterative reconstruction. CONTRAST: Omnipaque 350; 95 mL IV. DLP: 356.48 mGy.cm COMPARISON: 07/28/2009 Excellent opacification of the pulmonary arteries. No filling defects. Normal size pulmonary artery. Normal aorta. Heart size is normal. No RIGHT heart strain. No pericardial or pleural effusions. 4 mm partially calcified nodule in the LEFT upper lobe. Normal pulmonary vasculature. Benign nodules along the RIGHT minor fissure. No mediastinal or hilar adenopathy. There are mildly prominent lymphoid tis adve may be reactive. 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 No hiatal hernia. Long-term stability of a hepatic cyst measuring 2.[address]/CT angio chest PE protcl [id number] IMPRESSION: 1. No pulmonary embolism. 2. Normal aorta. 3. No pneumonia. 4. 4 mm partially calcified nodule LEFT upper lobe is probably benign. 5. Stable hepatic cyst 6. Apparent RIGHT subclavian artery.
[2021-03-21 11:32] LABS: Basophils % 0.7 %; Eosinophils # 0.1 10^3/uL (0.0-0.8); Eosinophils % 1.8 %; Hematocrit 43.7 % (37.0-47.0); Hemoglobin 14.9 g/dL (11.5-15.3); Lymphocytes # 2.2 10^3/uL (0.8-4.8); Mean Corpuscular HGB Conc 34.1 g/dL (30.0-36.0); Mean Corpuscular Hemoglobin 30.3 pg (28.0-34.0); Mean Corpuscular Volume 88.8 fl (81-99); Mean Platelet Volume 10.4 fL (7.4-10.4); Monocytes # 0.5 10^3/uL (0.2-0.9); Monocytes % 9.1 %; Neutrophils # 2.63 10^3/uL (1.8-7.7); Neutrophils % 48.2 %; Nucleated Red Blood Cells % 0 %; Platelet Count 197 10^3/cmm (130-400); Red Blood Count 4.92 10^6/uL (4.1-5.3); Red Cell Distribution Width 12.4 % (12.1-15.1); White Blood Count 5.5 10^3/uL (4.0-10.0)
[2021-03-21 11:38] VITALS: BP 114/67; PULSE 57; RESP 18; O2SAT 100
[2021-03-21 11:51] LABS: D Dimer <= 0.27 ug/mIFEU (0-0.59)
[2021-03-21 11:58] LABS: Alanine Aminotransferase 14 U/L (0-33); Albumin Level 4.4 g/dL (3.5-5.2); Alkaline Phosphatase 55 IU/L (35-105); Anion Gap 16.1 (5-19); Aspartate Amino Transferase 15 U/L (0-32); Blood Urea Nitrogen 9 mg/dL (6-20); Calcium 8.9 mg/dL (8.5-10.5); Carbon Dioxide 25 mmol/L (22-29); Chloride 103 mmol/L (98-107); Globulin 2.9 g/dL (1.3-4.6); Glomerular Filtration Rate 113.1 mL/min (90-130); Glucose 87 mg/dL (65-115); Osmolality Calculated 288 mOsm/kg (285-295); Potassium 4.1 mmol/L (3.5-5.1); Sodium 140 mmol/L (136-145); Total Bilirubin 0.4 mg/dL (0.15-1.2); Total Protein 7.3 g/dL (6.6-8.7)
[2021-03-21 11:59] LABS: Troponin(5th) Baseline 6 ng/L (0-10)
--- NOTE | 2021-03-22 10:56 | DCPLANNER ---
Addendum entered by Elvie Parson 06/04/21 12:08: Patient had a follow up appointment scheduled with heart care - patient did attend appointment. Original Note: international bank manager had message to schedule a follow up appointment for patient with pulmonology. international bank manager called [facility], spoke with Nusrat, gave clinic patients information. A follow up appointment was scheduled for Sunday, April 01, 2021 at 8:[address] Kumari. international bank manager called patient and gave patient the appointment information.
== END 2021-03-21 12:37 | disposition home or self-care (01) ==
PROVIDERS: Emergency Provider Family Medicine; PCP Registered Nurse
DX: R07.89 Other chest pain (principal); F17.210 Nicotine dependence, cigarettes, uncomplicated; F41.1 Generalized anxiety disorder
CPT/HCPCS: 71045; 71275; 80053; 84484; 85025; 85378; 93005; 99283; Q9967

== ENCOUNTER → 2021-05-26 08:49 | Outpatient (BNVA) | payer BC, SELFPAY | PROVIDERS: PCP Nurse Practitioner Family; Visit Provider Psychiatry & Neurology Psychiatry | DX: F41.1 Generalized anxiety disorder (principal); F41.0 Panic disorder [episodic paroxysmal anxiety] | CPT/HCPCS: 99214 ==

== ENCOUNTER 2021-06-13 23:49 | Emergency (ER) | payer BC, MEDICAID, SELFPAY ==
--- NOTE | 2021-06-13 23:56 | XRR_ITS ---
PROCEDURE INFORMATION: Exam: XR Chest Exam date and time: 06/13/2021 11:56 PM Age: 35 years old Clinical indication: Cough and shortness of breath. TECHNIQUE: Imaging protocol: XR of the chest. Views: 1 view. COMPARISON: CR XR chest 1V portable [id number] 03/21/2021 11:00 AM FINDINGS: Lungs: No pulmonary consolidation. Pleural spaces: No pleural effusion. No pneumothorax. Heart/Mediastinum: The cardiac silhouette is unremarkable. No gross evidence of pneumomediastinum. Bones/joints: No gross fracture. Soft tissues: There are probable nipple shadows overlying the lower chest, bilaterally. Consider chest x-ray with nipple markers to confirm. XR/XR chest 1V portable [id number] IMPRESSION: There are probable nipple shadows overlying the lower chest, bilaterally. Consider chest x-ray with nipple markers to confirm.
[2021-06-14 00:02] VITALS: BP 114/74; PULSE 83; RESP 18; TEMP 36.9; O2SAT 97; BMI 19.7
--- NOTE | 2021-06-14 03:07 | ECG_ITS ---
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 Measurements Intervals [place] Rate: 70 P: -51 OH: 168 QRS: 69 QRSD: 100 T: 45 QT: 395 QTc: 426 Interpretive Statements ECTOPIC ATRIAL RHYTHM POSSIBLE RIGHT VENTRICULAR CONDUCTION DELAY [RSR (QR) IN V1/V2] ABNORMAL RHYTHM ECG Compared to ECG 03/21/2021 11:13:24 No significant changes Electronically Signed On 06-14-2021 17:09:35 UNIX ADMINISTRATOR by Jessica Sanders M.D. [id number]
--- NOTE | 2021-06-14 03:15 | ED_ITS ---
HPI - SOB/Dyspnea General: Chief Complaint: Shortness of Breath/Dyspnea Stated Complaint: SOB\Cough Time Seen by Provider: 06/14/21 01:59 Source: patient Mode of arrival: ambulatory Limitations: no limitations History of Present Illness: HPI Narrative: 35-year-old female states she is had a persistent cough over the last month. She is a longtime smoker states that the cough has been dry in nature. She has had minimal shortness of breath denies any fevers. She denies any sick contacts. She denies any chest pain. She denies any worsening improving factors. States the cough just has been persistent and is becoming annoying symptoms been going on for a month straight. Associated symptoms: Deny abdominal pain, chest pain, fever(s), nausea or vomiting Review of Systems Const: Denies: fever(s), chills, body aches or change in appetite Eyes: Denies: blurry vision or eye discomfort ENMT: Denies: throat pain or dental pain Card: Denies: chest pain Resp: Reports: dyspnea and non-productive cough GI: Denies: abdominal pain, nausea, vomiting or diarrhea : Denies: dysuria Musc: Denies: neck pain or back pain Skin/Breast: Denies: rash Neuro: Denies: headache(s) Psych: Denies: depression Kunal/Lymph: Denies: easy bruising All/Imm: Denies: urticaria PFSH ED PFSH: Medical History Aftercare following surgery of the genitourinary system BRANDON (generalized anxiety disorder) Globus pharyngeus Panic Psychiatric care Vertigo Weakness Surgical History H/O laparoscopy H/O: hysterectomy also states that she had a surgery on a fallopian tube Family History Mother Hypertension Thyroid condition Denies family history of Colon cancer Ovarian cancer Diabetes Clotting disorder Heart disease Hyperlipidemia Breast cancer Anesthesia complication Bleeding disorder Uterine cancer Stroke Social History Smoking and tobacco status: current every day smoker cigarettes Packs smoked per day: 1 Years cigarettes smoked: 20 Alcohol intake: current Alcohol intake frequency: holidays/special occasions only Alcohol type: beer Other details last substance use: history of marijuana and methamphetamine use years ago Physical Exam Const: COMMON NORMALS: no acute distress, patient oriented x3 and healthy appearing HENMT: COMMON NORMALS: normocephalic and atraumatic HEAD & SCALP: normocephalic and atraumatic Eye: COMMON NORMALS: Equal, round and reactive pupils present and EOMs intact bilaterally PUPIL: Yes Equal, round and reactive pupils present Neck/C-Spine: COMMON NORMALS: full ROM and supple Chest: COMMONS NORMALS: normal inspection of the chest and normal palpation of entire chest wall Resp: COMMON NORMALS: normal respiratory effort, No retractions, No use of accessory muscles and clear to auscultation bilaterally AUSCULTATION: clear to auscultation bilaterally Cardio: COMMON NORMALS: regular rate, regular rhythm and No murmurs present (Cardio) RATE: regular rate RHYTHM: regular rhythm GI: COMMON NORMALS: Normal to inspection, nondistended, normoactive bowel sounds present, Soft to palpation, non-tender and no masses PALPATION: Yes Soft to palpation Extremity: COMMON NORMALS: normal to inspection and full ROM Neuro: COMMON NORMALS: patient oriented x3, moves all extremities and no focal motor deficits Psych: COMMON NORMALS: mental status grossly normal, Normal thought process present and cooperative THOUGHT PROCESS: Normal thought process present Skin: COMMON NORMALS: no rashes or lesions noted and no wounds GENERAL SKIN EXAM: no rashes or lesions noted Course Vital Signs: Vital signs: Vital Signs Temperature 98.5 F 06/14/21 00:02 Pulse Rate 83 06/14/21 00:02 Respiratory Rate 18 06/14/21 00:02 Blood Pressure 114/74 06/14/21 00:02 Pulse Oximetry 97 06/14/21 00:02 MDM - SOB/Dyspnea Medical Decision Making Patient presents here with cough going on for a month she has had no dyspnea no respiratory distress here no fever x-ray EKG is normal she said no cough when she has been here we will give her Decadron do a send out COVID she is to follow-up with PCP and return if worsening she is to continue use her inhaler at home I did give her smoking cessation counseling. Imaging Data CXR: I personally reviewed and interpreted this imaging study as follows: My impression: no acute abnormality Discharge Plan Discharge Patient Disposition: Home Clinical Impression: Cough Condition: Stable Prescriptions: No Action famotidine 20 mg tablet 20 mg PO BID 0RF Ativan 0.5 mg tablet 0.25 mg PO BID PRN (Reason: anxiety) 30 Days Qty: 30 3RF ibuprofen 800 mg tablet 800 mg PO TID PRN (Reason: pain) Qty: 60 3RF acetaminophen 325 mg capsule 325 mg PO Q4H PRN (Reason: fever or pain) Qty: 60 0RF Discharge Orders: Discharge ED (Routine); Ordered 06/14/21 Ordered By: Butch Tran Discharge Diet: Advance as tolerated Discharge Activity: Resume usual activity Patient Instructions: Acute Cough (ED) Coding Level of Care Code ED Business Management Analyst for [employer] Fwd Exam Comprehensive
[2021-06-14] MEDS: benzonatate 100 mg Capsule PO (03:29)
[2021-06-14] MEDS: dexamethasone 10 mg/mL INJ IM (03:29)
--- NOTE | 2021-06-14 03:29 | PC.NURSE ---
medicated per order, aseptic to right ventrogluteal, no bleeding at side. tolerated well.
[2021-06-14 04:22] VITALS: PULSE 76; RESP 18; O2SAT 99
[2021-06-14] MEDS: ipratropium-albuterol 3 mL Neb INHALATION (04:22)
[2021-06-15 18:32] LABS: Quest SARS-CoV-2 RNA NOT DETECTED (NOT DETECTED)
== END 2021-06-14 04:33 | disposition home or self-care (01) ==
PROVIDERS: Emergency Provider Emergency Medicine
DX: R05.9 Cough, unspecified (principal); F17.210 Nicotine dependence, cigarettes, uncomplicated; Z20.822 Contact with and (suspected) exposure to COVID-19
CPT/HCPCS: 71045; 87635; 93005; 94640; 96372; 99283; J1100

== ENCOUNTER → 2021-10-20 15:48 | Outpatient (BNVA) | payer BC, MEDICAID, SELFPAY | PROVIDERS: Visit Provider Psychiatry & Neurology Psychiatry | DX: F41.1 Generalized anxiety disorder (principal); F41.0 Panic disorder [episodic paroxysmal anxiety] | CPT/HCPCS: 99214 ==

== ENCOUNTER 2021-12-19 14:23 | Emergency (ER) | payer BC, MEDICAID, SELFPAY ==
[2021-12-19 14:34] VITALS: BP 118/75; PULSE 74; RESP 14; TEMP 36.6; O2SAT 100; BMI 21.2
--- NOTE | 2021-12-19 14:39 | ECG_ITS ---
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 Measurements Intervals [place] Rate: 73 P: -35 HI: 131 QRS: 65 QRSD: 97 T: 43 QT: 386 QTc: 426 Interpretive Statements SINUS RHYTHM POSSIBLE RIGHT VENTRICULAR CONDUCTION DELAY [RSR (QR) IN V1/V2] Compared to ECG 06/14/2021 03:16:59 Ectopic atrial rhythm no longer present Electronically Signed On 12-20-2021 0:48:40 CDT by Soraya Callejas M.D. [id number]
--- NOTE | 2021-12-19 15:00 | XRR_ITS ---
PROCEDURE INFORMATION: Exam: XR Chest Exam date and time: 12/19/2021 3:13 PM Age: 36 years old Clinical indication: Pain; Angina pectoris; Patient HX: Cp x 3 days; Additional info: Chest pain TECHNIQUE: Imaging protocol: Radiologic exam of the chest. Views: 1 view. COMPARISON: CR XR chest 1V portable [id number] 06/14/2021 3:37 AM FINDINGS: Lungs: Unremarkable. No consolidation. Pleural spaces: Unremarkable. No pleural effusion. No pneumothorax. Heart/Mediastinum: Unremarkable. No cardiomegaly. Bones/joints: Unremarkable. XR/XR chest 1V portable [id number] IMPRESSION: No acute findings.
--- NOTE | 2021-12-19 15:32 | PC.NURSE ---
pt reports chest pain x5 days, and a nonproductive cough x3 days. Denies N/V/D, fevers, shortness of breath, or complaints. A&Ox3, lung sounds clear, bowel sounds present x4. skin pink/warm/dry.
--- NOTE | 2021-12-19 15:34 | W.ED.GENADLT ---
HPI - General Adult General: Chief complaint: Chest Pain Stated complaint: Chest pains Time Seen by Provider: 12/19/21 15:16 History of Present Illness: CC: Chest Pain, cough HPI: This is a [36] yo patient hx of bronchitis presenting to the ED complaining of acute sudden onset chest pressure for the last 5 days. Since 3 days ago patient also has noted nonproductive cough. Patient reports shortness of breath. Denies any fever/chills, runny nose or sore throat. Pain is not tearing in nature and does not radiate to the back. Pain not associated with vomiting or PO intake. Denies any recent sympathomimetic drug use. Patient denies any cough. Denies palpitations, dysphagia, diaphoresis, radiation of pain to bilateral arms, jaw. Denies F/N/V/D. Patient denies any recent immobility, surgery, unilateral leg swelling, or prior PE. Patient denies any orthopnea. Onset: 5 days of chest pain, 3 days of cough Duration: ongoing Location: home Severity: mild/moderate Associated symptoms: Reports chest pain; Deny dyspnea, nausea, rash, palpitations or vomiting Review of Systems Const: Denies: fever(s) or chills Eyes: Denies: change in vision ENMT: Denies: mouth pain Card: Reports: chest pain; Denies: palpitations Resp: Reports: non-productive cough; Denies: dyspnea GI: Denies: abdominal pain, nausea, vomiting or diarrhea : Denies: dysuria Musc: Denies: extremity pain Skin/Breast: Denies: rash or new lesions Neuro: Denies: weakness in extremities Psych: Reports: other (Normal mood) Kunal/Lymph: Denies: easy bruising PFSH ED PFSH: Medical History Aftercare following surgery of the genitourinary system BRANDON (generalized anxiety disorder) Globus pharyngeus Panic Psychiatric care Vertigo Weakness Surgical History H/O laparoscopy H/O: hysterectomy also states that she had a surgery on a fallopian tube Family History Mother Hypertension Thyroid condition Denies family history of Colon cancer Ovarian cancer Diabetes Clotting disorder Heart disease Hyperlipidemia Breast cancer Anesthesia complication Bleeding disorder Uterine cancer Stroke Social History Smoking and tobacco status: current every day smoker cigarettes Packs smoked per day: 1 Years cigarettes smoked: 20 Alcohol intake: current Alcohol intake frequency: holidays/special occasions only Alcohol type: beer Other details last substance use: history of marijuana and methamphetamine use years ago Physical Exam Const: COMMON NORMALS: alert HENMT: COMMON NORMALS: atraumatic HEAD & SCALP: atraumatic MOUTH: moist mucous membranes not abnormal Eye: COMMON NORMALS: EOMs intact bilaterally and conjunctivae normal CONJUNCTIVA: Yes conjunctivae normal Neck/C-Spine: COMMON NORMALS: full ROM and supple Resp: COMMON NORMALS: normal respiratory effort and clear to auscultation bilaterally AUSCULTATION: clear to auscultation bilaterally Cardio: COMMON NORMALS: regular rate RATE: regular rate OTHER: 2+ radial pulses b/l GI: COMMON NORMALS: Soft to palpation and non-tender PALPATION: Yes Soft to palpation OTHER: No focal TTP. NO guarding rebound, guarding, rigidity. No CVA tenderness to percussion. Neg Conner/Neg McBurney's point tenderness, no suprabupic tenderness to palpation. Extremity: COMMON NORMALS: full ROM Neuro: SENSORIUM/ORIENTATION: Yes alert MOTOR EXAM: No Abnormal motor strength present and Other motor observations present (no focal motor deficits) Psych: COMMON NORMALS: speech normal SPEECH: Yes normal speech MOOD & AFFECT: Yes euthymic mood Course Vital Signs: Vital signs: Vital Signs Temperature 97.8 F 12/19/21 14:34 Pulse Rate 99 12/19/21 17:02 Respiratory Rate 18 12/19/21 17:02 Blood Pressure 117/48 12/19/21 17:02 Pulse Oximetry 99 12/19/21 17:02 Oxygen Delivery Me thod 12/19/21 16:47 MDM - General Adult Medical Decision Making [36]yo patient w/ hx of bronchitis presenting to the ED with evaluation of new onset of chest pain x 5 days and 3 days of non-productice cough. HDS, pulse 2+ radially bilaterally, no signs of fluid overload, AAOx3, neuro exam intact. Given History and Exam today I have no suspicion for ACS, Pneumothorax, Pneumonia, Pulmonary Embolus, Tamponade, Aortic Dissection or other emergent problems as a cause for this presentation. Workup: ECG, CXR, CBC, BMP, Troponin Interventions: duoneb Findings: ECG: No overt evidence of STEMI, hyperacute T waves, localizable STD or T wave inversions. No evidence of Brugada?s sign, delta wave, epsilon wave, significantly prolonged QTc, or malignant arrhythmia. No Q waves. Other Labs unremarkable for emergent problems. CXR: Without PTX, PNA, or widened mediastinum Last Stress Test: never Last Heart Catheterization: never HEART Score: 0 PERC: Negative [5:30pm] On reassessment, the patient is HDS, no complaints of persistent chest pain in the ED after evaluation. ECG is non-ischemic. Workup today is unremarkable. Doubt ACS/PE or other emergent causes of chest pain. Doubt ACS/PE or other emergent causes of chest pain. No suspicion for aortic dissection given no widened mediastinum, 2+ upper extremity pulses, or tearing pain. No suspicion for PE given no pleuritic chest pain, recent immobilization or surgery hemoptysis, or other VTE risk factors. EKG is non-ischemic. XR normal. We will send influenza and COVID swab today. Patient reports that chest pain significant improved after DuoNeb treatment and tylenol. Rx: Tylenol 500mg Q6Hrs x 4 days PRN pain Disposition: Discharge. Strict return precautions discussed with the patient with full understanding. Advised patient to follow up promptly with a primary care provider in 24-48 hrs if the patient has persistent symptoms. Given return instructions for any crushing/tearing chest pain, focal weakness, syncope or any new or concerning issues. Lab Data : 12/19/21 15:25 12/19/21 15:25 Radiology Impressions Chest X-Ray 12/19/21 15:00 IMPRESSION: No acute findings. Laboratory Results WBC 6.4 10^3/uL (4.0-10.0) 12/19/21 15:25 RBC 4.71 10^6/uL (4.1-5.3) 12/19/21 15:25 Hgb 14.2 g/dL (11.5-15.3) 12/19/21 15:25 Hct 44.0 % (37.0-47.0) 12/19/21 15:25 MCV 93.4 fl (81-99) 12/19/21 15:25 MCH 30.1 pg (28.0-34.0) 12/19/21 15:25 MCHC 32.3 g/dL (30.0-36.0) 12/19/21 15:25 RDW 12.2 % (12.1-15.1) 12/19/21 15:25 Plt Count 201 10^3/cmm (130-400) 12/19/21 15:25 MPV 10.6 fL (7.4-10.4) H 12/19/21 15:25 Neut % (Auto) 44.0 % 12/19/21 15:25 Lymph % (Auto) 45.8 % 12/19/21 15:25 Chaves % (Auto) 8.0 % 12/19/21 15:25 Eos % (Auto) 1.4 % 12/19/21 15:25 Baso % (Auto) 0.6 % 12/19/21 15:25 Neut # (Auto) 2.81 10^3/uL (1.8-7.7) 12/19/21 15:25 Lymph # (Auto) 2.9 10^3/uL (0.8-4.8) 12/19/21 15:25 Chaves # (Auto) 0.5 10^3/uL (0.2-0.9) 12/19/21 15:25 Eos # (Auto) 0.1 10^3/uL (0.0-0.8) 12/19/21 15:25 Baso # (Auto) 0.0 10^3/uL (0.0-0.1) 12/19/21 15:25 Nucleated RBC % (auto) 0 % 12/19/21 15:25 Nucleated RBCs # 0.0 /100WBC 12/19/21 15:25 Sodium 135 mmol/L (136-145) L 12/19/21 15:25 Potassium 3.8 mmol/L (3.5-5.1) 12/19/21 15:25 Chloride 102 mmol/L (98-107) 12/19/21 15:25 Carbon Dioxide 22 mmol/L (22-29) 12/19/21 15:25 Anion Gap 14.8 (5-19) 12/19/21 15:25 BUN 9 mg/dL (6-20) 12/19/21 15:25 Creatinine 0.6 mg/dL (0.5-0.9) 12/19/21 15:25 GFR Calculation 112.5 mL/min (90-130) 12/19/21 15:25 Glucose 81 mg/dL (65-115) 12/19/21 15:25 Calculated Osmolality 278 mOsm/kg (285-295) L 12/19/21 15:25 Calcium 9.1 mg/dL (8.5-10.5) 12/19/21 15:25 Troponin T Baseline 6 ng/L (0-10) 12/19/21 15:25 Imaging Data Other Imaging: Radiologist's impression: [address] [address] XRay Report Signed Patient: Maryellen Rivera Unit #: [id number] : 1985 Age/Sex: 36 / F ADM Date: 12/19/21 Loc: ER Room/Bed: Attending Dr: Ordering Provider/Ordering MD: Saw Irwin MD Date of Service: 12/19/21 Procedure(s): XR chest 1V portable [id number] Accession Number(s): [id number] Report Number: [id number] PROCEDURE INFORMATION: Exam: XR Chest Exam date and time: 12/19/2021 3:13 PM Age: 36 years old Clinical indication: Pain; Angina pectoris; Patient HX: Cp x 3 days; Additional info: Chest pain TECHNIQUE: Imaging protocol: Radiologic exam of the chest. Views: 1 view. COMPARISON: CR XR chest 1V portable [id number] 06/14/2021 3:37 AM FINDINGS: Lungs: Unremarkable. No consolidation. Pleural spaces: Unremarkable. No pleural effusion. No pneumothorax. Heart/Mediastinum: Unremarkable. No cardiomegaly. Bones/joints: Unremarkable. XR/XR chest 1V portable [id number] IMPRESSION: No acute findings. ? Dictated By: Cong Thompson MD Signed By: Cong Thompson MD Signed Date/Time: 12/19/21 1530 DD/ 1513 Discharge Plan Discharge Patient Disposition: Home Clinical Impression: Chest pain, Cough Condition: Stable Prescriptions: New acetaminophen 500 mg tablet 500 mg PO Q6H PRN (Reason: pain) 5 Days Qty: 20 0RF albuterol sulfate 90 mcg/actuation HFA aerosol inhaler 2 inh inhalation Q4H PRN (Reason: shortness of breath or wheezing) 5 Days Qty: 6.7 0RF No Action Ativan 0.5 mg tablet 0.5 mg PO BID PRN (Reason: anxiety) 30 Days Qty: 60 3RF ibuprofen 800 mg tablet 800 mg PO TID PRN (Reason: pain) Qty: 60 3RF Discharge Orders: Discharge ED (Routine); Ordered 12/19/21 Ordered By: Saw Irwin Discharge Diet: Advance as tolerated Discharge Activity: Increase activity as tolerated Patient Instructions: Chest Pain (ED), Acute Cough (ED) Activity Restrictions/Additional Instructions: Come back to the emergency room if your symptoms worsen, have any shortness of breath, fever/chills, dehydration, inability tolerate food or drinks, any difficulty breathing, or any new or concerning complaints. Come back to the emergency room if your chest pain worsens, have any fever or chills, worsening shortness of breath, worsening exertional lightheadedness, or any new or concerning complaints. Coding Level of Care Code ED Internet Manager for Reymundo Fwd Exam Comprehensive
[2021-12-19 15:37] LABS: Basophils % 0.6 %; Eosinophils # 0.1 10^3/uL (0.0-0.8); Eosinophils % 1.4 %; Hemoglobin 14.2 g/dL (11.5-15.3); Lymphocytes # 2.9 10^3/uL (0.8-4.8); Lymphocytes % 45.8 %; Mean Corpuscular HGB Conc 32.3 g/dL (30.0-36.0); Mean Corpuscular Hemoglobin 30.1 pg (28.0-34.0); Mean Corpuscular Volume 93.4 fl (81-99); Mean Platelet Volume 10.6 fL (7.4-10.4); Monocytes # 0.5 10^3/uL (0.2-0.9); Neutrophils # 2.81 10^3/uL (1.8-7.7); Nucleated Red Blood Cells % 0 %; Platelet Count 201 10^3/cmm (130-400); Red Blood Count 4.71 10^6/uL (4.1-5.3); Red Cell Distribution Width 12.2 % (12.1-15.1); White Blood Count 6.4 10^3/uL (4.0-10.0)
[2021-12-19 16:11] LABS: Anion Gap 14.8 (5-19); Blood Urea Nitrogen 9 mg/dL (6-20); Calcium 9.1 mg/dL (8.5-10.5); Carbon Dioxide 22 mmol/L (22-29); Chloride 102 mmol/L (98-107); Glomerular Filtration Rate 112.5 mL/min (90-130); Glucose 81 mg/dL (65-115); Osmolality Calculated 278 mOsm/kg (285-295); Potassium 3.8 mmol/L (3.5-5.1); Sodium 135 mmol/L (136-145)
[2021-12-19 16:16] LABS: Troponin(5th) Baseline 6 ng/L (0-10)
[2021-12-19] MEDS: acetaminophen 500 mg Tablet PO (16:31)
[2021-12-19 16:33] VITALS: BP 106/61; PULSE 69; RESP 16; O2SAT 99
[2021-12-19] MEDS: ipratropium-albuterol 3 mL Neb INHALATION (16:45)
[2021-12-19 16:47] VITALS: PULSE 63; RESP 16; O2SAT 95
[2021-12-19 16:49] VITALS: PULSE 65
[2021-12-19 17:02] VITALS: BP 117/48; PULSE 99; RESP 18; O2SAT 99
[2021-12-19 17:36] LABS: Adenovirus Not Detected (NOT DETECT); Chlamydia Pneumoniae Not Detected (NOT DETECT); Coronavirus 229E,HKU1,NL63,OC4 Not Detected (NOT DETECT); Human Metapneumovirus Not Detected (NOT DETECT); Human Rhinovirus/Enterovirus Not Detected (NOT DETECT); Influenza A Not Detected (NOT DETECT); Influenza A H1 Not Detected (NOT DETECT); Influenza A H1-2009 Not Detected (NOT DETECT); Influenza A H3 Not Detected (NOT DETECT); Influenza B Not Detected (NOT DETECT); Mycoplasma Pneumoniae Not Detected (NOT DETECT); Parainfluenza Virus Type 1 Not Detected (NOT DETECT); Parainfluenza Virus Type 2 Not Detected (NOT DETECT); Parainfluenza Virus Type 3 Not Detected (NOT DETECT); Parainfluenza Virus Type 4 Not Detected (NOT DETECT); Respiratory Syncytial Virus A Not Detected (NOT DETECT); Respiratory Syncytial Virus B Not Detected (NOT DETECT); SARS-COV-2 Not Detected (NOT DETECT)
[2021-12-19 17:53] LABS: Influenza A Not Detected (NOT DETECT); Influenza A H1 Not Detected (NOT DETECT); Influenza A H1-2009 Not Detected (NOT DETECT); Influenza A H3 Not Detected (NOT DETECT); Influenza B Not Detected (NOT DETECT); Results from Genmark
== END 2021-12-19 17:05 | disposition home or self-care (01) ==
PROVIDERS: Emergency Provider Emergency Medicine
DX: R07.9 Chest pain, unspecified (principal); R05.9 Cough, unspecified; F17.210 Nicotine dependence, cigarettes, uncomplicated; Z20.822 Contact with and (suspected) exposure to COVID-19
CPT/HCPCS: 71045; 80048; 84484; 85025; 87631; 87635; 93005; 94640; 99285

== ENCOUNTER 2022-06-06 13:14 | Outpatient (CLI) | payer BC, MEDICAID, SELFPAY ==
--- NOTE | 2022-06-06 15:00 | CT_ITS ---
WS: [id number] CT CHEST WITHOUT INTRAVENOUS CONTRAST HISTORY: 12 month f/u partially calcified nodule in cigarette smoker TECHNIQUE: Contiguous 5 mm axial imaging performed on the thorax. Coronal and sagittal reformats are submitted. All CT scans at [facility] use at least one of these dose optimization techniques: automated exposure control; mA and/or kV adjustment per patient size (includes targeted exams where dose is matched to clinical indication); or iterative reconstruction. CONTRAST: None DLP: 210.24 mGy.cm COMPARISON: 03/21/2021 Lungs and central airway: No change in the partially calcified 4 mm nodule LEFT upper lobe. Additiona l small cluster of nodules in the RIGHT upper lobe are also unchanged. These were present on the prio r study. Right-sided nodules extend along the fissure. Pleura: Normal. No pleural effusion. Heart and pericardium: Normal size heart with no pericardial effusion. Mediastinum and adonay: No mediastinal adenopathy identified on this unenhanced exam. Aberrant RIGHT becerra bclavian artery is reidentified. Vessels: Normal size aortic and pulmonary artery. No coronary artery calcifications. Chest wall and lower neck: No soft tissue masses. Upper abdomen: 21 x 22 cm cyst LEFT lobe of the liver, stable. No adrenal mass. Osseous structures: No destructive process. CT/CT chest wo con [id number] IMPRESSION: 1. No interval change in size or appearance of the 4 mm partially calcified LE FT upper lobe nodule. Very benign in appearance. No additional follow-up necess kendell. 2. Benign appearing RIGHT perifissural nodule's. 3. Aberrant RIGHT subclavian artery. 4. Stable LEFT hepatic steatosis.
== END 2022-06-06 13:15 | disposition home or self-care (01) ==
LOC: RAD 13:14
PROVIDERS: PCP Family Medicine; Visit Provider Internal Medicine Pulmonary Disease
DX: R91.1 Solitary pulmonary nodule (principal)
CPT/HCPCS: 71250